=== PATIENT | female | born 1970 | race American Indian/Alaskan Native ===

== ENCOUNTER 2017-12-16 11:56 | Emergency (ER) | payer BC ==
--- NOTE | 2017-12-16 12:08 | EDM.PDOC ---
ED HPI GENERAL MEDICAL PROBLEM - General Chief Complaint: Head Injury Stated Complaint: PT FELL IN TUB AND HIT HER HEAD Time Seen by Provider: 12/16/17 12:08 Source of Information: Reports: Patient History Limitations: Reports: No Limitations - History of Present Illness INITIAL COMMENTS - FREE TEXT/NARRATIVE: HISTORY AND PHYSICAL: []47-year-old female presenting after a fall in the bathtub last night History of Present Illness: []She remembers stepping into the tub and her foot went out from under her she struck the right side of her head on the tub injuring her ear and tenderness and headache now to the right side. Ports no loss of consciousness Review of Systems: As per history of present illness and below otherwise all systems reviewed and negative. Past medical history: As per history of present illness and as reviewed below otherwise noncontributory. Surgical history: As per history of present illness and as reviewed below otherwise noncontributory. Social history: No reported history of drug or alcohol abuse. Family history: As per history of present illness and as reviewed below otherwise noncontributory. Physical exam: Alert and oriented no difficulty with memory or answering questions no shortness of breath when speaking in full sentences HEENT: Ecchymosis noted to the pinna of her right ear, tenderness to palpation of the scalp, normocehpalic, pupils reactive, negative for conjunctival pallor or scleral icterus, mucous membranes moist, throat clear, neck supple, nontender , trachea midline. No nystagmus Lungs: Clear to auscultation, breath sounds equal bilaterally, chest non tender. Heart: S1S2, regular, negative for clicks, rubs, or JVD. Abdomen: Soft, nondistended, nontender. Negative for masses or hepatossplenmegaly. Negative for costovertebral tenderness. Pelvis: Stable nontender. Genitourinary: Deferred. Rectal: Deferred Extremities: Mild edema to anterior and lateral right ankle, pain, negative for cords or calf pain. Full range of motion present. Neurovascular unremarkable. Neuro: Awake, alert, oriented. Cranial nerves II through XII unremarkable. Cerebellum unremarkable. Motor and sensory unremarkable throughout. Exam nonfocal. Note will be written for work to be off 48 hours due to the multiple contusions Diagnostics: X-ray ankle right & skull[] Therapeutics: []Toradol 60 IM Impression: [Multiple contusions Minor concussion] Plan: []Discharged to home Follow up with your primary care provider Recommend follow-up with ear nose and throat specialty if your ear continues to swell [facility] [address] [place] [address] [phone] Definitive disposition and diagnosis as appropriate pending reevaluation and review of above. Right Ankle Pain Score (Numeric/FACES): 5 Head Pain Score (Numeric/FACES): 7 - Related Data Allergies Allergy/AdvReac Type Severity Reaction Status Date / Time No Known Allergies Allergy Verified 12/16/17 12:12 Home Meds: Home Meds . [No Known Home Meds] 12/16/17 [History] ED ROS GENERAL - Review of Systems Review Of Systems: ROS reveals no pertinent complaints other than HPI. ED EXAM, HEAD INJURY - Physical Exam Exam: See Below (See dictation) Course - Vital Signs Last Recorded V/S: Last Vital Signs Temp 36.4 C 12/16/17 12:08 Pulse 88 12/16/17 12:08 Resp 18 12/16/17 12:08 BP 135/95 H 12/16/17 12:08 Pulse Ox 98 12/16/17 12:08 - Orders/Labs/Meds Orders: Active Orders 24 hr Category Date Time Status Ankle Min 3V Rt [CR] Stat Exams 12/16/17 12:21 Taken Skull Less 4V [CR] Stat Exams 12/16/17 12:20 Taken Labs: Laboratory Tests 12/16/17 Range/Units 12:31 Urine HCG, Qual NEGATIVE (NEGATIVE) Meds: Medications Discontinued Medications Generic Name Dose Route Start Last Admin Trade Name Freq PRN Reason Stop Dose Admin Ketorolac Tromethamine 60 mg 12/16/17 12:20 12/16/17 12:29 Toradol IM 12/16/17 12:21 60 mg ONETIME ONE Administration Departure - Departure Time of Disposition: 13:38 Disposition: Home, Self-Care 01 Condition: Good Clinical Impression: Concussion injury of brain Minor head injury without loss of consciousness Qualifiers: Encounter type: initial encounter Qualified Code(s): S09.90XA - Unspecified injury of head, initial encounter Contusion, ankle Qualifiers: Encounter type: initial encounter Laterality: right Qualified Code(s): S90.01XA - Contusion of right ankle, initial encounter - Discharge Information Instructions: Head Injury, Adult Referrals: PCP,None [Primary Care Provider] - Forms: ED Department Discharge Additional Instructions: The following information is given to patients seen in the emergency department who are being discharged to home. This information is to outline your options for follow-up care. We provide all patients seen in our emergency department with a follow-up referral. The need for follow-up, as well as the timing and circumstances, are variable depending upon the specifics of your emergency department visit. If you don't have a primary care physician on staff, we will provide you with a referral. We always advise you to contact your personal physician following an emergency department visit to inform them of the circumstance of the visit and for follow-up with them and/or the need for any referrals to a consulting specialist. The emergency department will also refer you to a specialist when appropriate. This referral assures that you have the opportunity for followup care with a specialist. All of these measure are taken in an effort to provide you with optimal care, which includes your followup. Under all circumstances we always encourage you to contact your private physician who remains a resource for coordinating your care. When calling for followup care, please make the office aware that this follow-up is from your recent emergency room visit. If for any reason you are refused follow-up, please contact the [facility] emergency department at and asked to speak to the emergency department charge nurse. A note has been given to you to be off work for the next 48 hours due to the minor head injury with concussion Multiple contusions head and foot were found no fractures Recommend follow-up with ear nose and throat should you or ear continue to have swelling [facility] [address] [place] [id number] Phone: - My Orders Last 24 Hours: My Active Orders 12/16/17 12:20 Skull Less 4V [CR] Stat 12/16/17 12:21 Ankle Min 3V Rt [CR] Stat - Assessment/Plan Last 24 Hours: My Active Orders 12/16/17 12:20 Skull Less 4V [CR] Stat 12/16/17 12:21 Ankle Min 3V Rt [CR] Stat
[2017-12-16] MEDS ORDERED: Ketorolac 60 MG/2 ML SDV IM ONE (12:20)
--- NOTE | 2017-12-18 09:29 | CR ---
EXAM DATE: 12/16/17 PATIENT'S AGE: 47 Patient: STEWART HICKS Facility: [place], [place] Site . Site : 1970 Study: XRay Head SKULL [id number]/24/2018 1:01:34 PM Ordering Physician: Doctor Del Real Final Report: HISTORY: Fall, hit head. TECHNIQUE: Two views of the skull. COMPARISON: No prior. FINDINGS: No acute displaced skull fracture. Frontal and maxillary sinuses appear grossly clear. Dental fillings. IMPRESSION: No acute fracture seen radiographically. Dictated by Adria Stephens MD @ 12/16/2017 1:17:12 PM Dictated by: Adria Stephens MD @ 12/16/2017 13:17:19 (Electronic Signature) Report Signed by Proxy. [facility] CENTERZayda
--- NOTE | 2017-12-18 09:31 | CR ---
EXAM DATE: 12/16/17 PATIENT'S AGE: 47 Patient: STEWART HICKS Facility: [place], [place] Site . Site : 1970 Study: XRay Extremity Right ANKLE [id number]/24/2018 1:02:45 PM Ordering Physician: Doctor Del Real Final Report: HISTORY: Right ankle pain, fall. TECHNIQUE: Three views of the right ankle. COMPARISON: No prior. FINDINGS: There is no acute fracture or malalignment. The joint spaces are maintained. Small ossicle along the dorsal proximal aspect of the navicular bone appears corticated and chronic. There is potentially a small os trigonum. No radiopaque foreign body or soft tissue gas. IMPRESSION: No acute fracture or malalignment. Dictated by Adria Stephens MD @ 12/16/2017 1:18:55 PM Dictated by: Adria Stephens MD @ 12/16/2017 13:19:00 (Electronic Signature) Report Signed by Proxy. NATALI
== END 2017-12-16 13:55 | disposition home or self-care (01) ==
LOC: MW.ED 11:56
DX: S06.0X0A Concussion without loss of consciousness, initial encounter (principal); S90.01XA Contusion of right ankle, initial encounter; S00.431A Contusion of right ear, initial encounter; W18.2XXA Fall in (into) shower or empty bathtub, initial encounter
CPT/HCPCS: 70250; 73610; 81025; 96372; 99283; J1885; 99284